=== PATIENT | male | born 1950 | race Caucasian/White ===

== ENCOUNTER → 2017-02-18 | Outpatient (CLI) | payer MEDICARE, OTHER ==
[~2017-02-18] MED LIST: FLOMAX 0.40.4 MG/CAP PO; PROSCAR 5MG5 MG PO
== END ==
LOC: COL.RAD 07:55
DX: Z13.6 Encounter for screening for cardiovascular disorders (principal); I70.0 Atherosclerosis of aorta; Z87.891 Personal history of nicotine dependence

== ENCOUNTER 2021-04-11 07:34 | Day surgery (SDC) | payer MEDICARE ==
[2021-04-11] VITALS (10 sets, daily range): BP systolic 121–143; BP diastolic 64–94; PULSE 47–60; TEMP 97.5–98.1
[~2021-04-11] VITALS: Ht 172.7 cm; Wt 94.7 kg
[2021-04-11] MEDS ORDERED: VIAGRA100 M1 PO (08:22)
--- NOTE | 2021-04-11 11:50 | NUR ---
Patient returns to room 7 per cart from PACU accompanied by Abigail MANN. Awake and taking ice chips. Denies pain or nausea. IV fluids infusing at TKO. Incisions x3 on abdomen covered with Exofin skin glue. Sites without drainage. Wound edges well approximated. Spouse at side. Call light in reach and siderails up x2. Allowed to rest.
--- NOTE | 2021-04-11 12:05 | NUR ---
Room air sats 95%. Continues to take ice chips.
--- NOTE | 2021-04-11 12:20 | NUR ---
Resting and offers no complaints of pain or nausea.
--- NOTE | 2021-04-11 12:35 | NUR ---
Spouse remains in the room and is resting without complaints of pain or nausea.
--- NOTE | 2021-04-11 12:50 | NUR ---
Continues to deny pain or nausea. Resting and sipping on water.
--- NOTE | 2021-04-11 13:01 | NUR ---
Eating muffin and sipping on Pepsi.
[2021-04-11] MEDS ORDERED: ULTRAM 50MG TAB50 MG PO (13:06)
--- NOTE | 2021-04-11 13:20 | NUR ---
IV to INT and is up walking in the hallway. Gait steady and denies need for pain medication. Denies nausea with movement.
--- NOTE | 2021-04-11 13:30 | NUR ---
Unable to void and returns to room. Drinking water and sipping on coffee.
--- NOTE | 2021-04-11 14:10 | NUR ---
Drinking coffee and water. Room air sats 96%. Watches TV.
--- NOTE | 2021-04-11 15:10 | NUR ---
Resting and is talking with spouse. Room air sats 96%. Has been walking on the hallway. Has done well with forcing fluids.
--- NOTE | 2021-04-11 15:50 | NUR ---
Bladder scan done with 240ml noted.
--- NOTE | 2021-04-11 15:55 | NUR ---
Dr. Corbett notified of 240ml with bladder scan. States that patient maybe discharged but if he is unable to urinate he must return to the emergency room if he is unable to urinate. Patient was given the option to stay until 1800 to attempt to urinate or go home. Patient will stay and continue to walk and drink fluids.
--- NOTE | 2021-04-11 16:56 | NUR ---
Patient reports being able to void x2 in the last 20 minutes. INT needle discontinued and spouse notified that patient is ready for discharge.
--- NOTE | 2021-04-11 17:00 | NUR ---
Dismissal instructions given and voices understanding of home cares.
--- NOTE | 2021-04-11 17:15 | NUR ---
Dismissed to home driven by spouse and taken to the emergency room entrance by Cuong MANN and assisted into vehicle with instructions in hand.
== END 2021-04-11 17:15 | disposition home or self-care (01) ==
LOC: SDCO 07:34
DX: K40.91 Unilateral inguinal hernia, without obstruction or gangrene, recurrent (principal); Z98.52 Vasectomy status; Z80.1 Family history of malignant neoplasm of trachea, bronchus and lung; Z79.899 Other long term (current) drug therapy
CPT/HCPCS: A4314; C1781; J0690; J1100; J2405; J2704; J3010; J7120